=== PATIENT | female | born 1990 | race African-American/Black ===

== ENCOUNTER 2024-03-27 09:35 | Emergency (ER) | payer OTHER ==
[~2024-03-27] VITALS: Ht 152.4 cm; Wt 86.2 kg
[2024-03-27] MEDS ORDERED: TETRACAINE HCL 20 DR/ML DROPS OP ONE (10:15)
[2024-03-27] MEDS ORDERED: METHYLPREDNISOLONE SOD SUCC 40 MG VIAL IM ONE (10:15)
[2024-03-27] MEDS ORDERED: CEFTRIAXONE SODIUM 1,000 MG VIAL IM ONE (10:15)
[2024-03-27] MEDS ORDERED: KETOROLAC TROMETHAMINE 60 MG VIAL IM ONE (10:15)
[2024-03-27] MEDS ORDERED: DIPHENHYDRAMINE HCL 50 MG/ML VIAL 1ML IM ONE (10:15)
[2024-03-27 11:42] LABS: HEMATOCRIT 37.1 % (36.0-45.00); HEMOGLOBIN 12.7 g/dL (12.0-15.00); MEAN CELL VOLUME 84.3 fL (80.00-100.00); MEAN CORPUSCULAR HEMOGLOBIN 28.8 pg (27.00-32.0); MEAN CORPUSCULAR HGB CONC 34.1 g/dl (32.0-36.0); PLATELET COUNT 286 K/uL (150-450); RED BLOOD COUNT 4.41 M/uL (4.00-6.00); RED CELL DISTRIBUTION WIDTH 14.6 % (11.5-14.5)
[2024-03-27] MEDS ORDERED: MAXITROL EYE DRO5 ML OP (12:00)
== END 2024-03-27 12:03 | disposition home or self-care (01) ==
LOC: ER 09:37
PROVIDERS: General Practice
DX: H57.89 Other specified disorders of eye and adnexa (principal)
CPT/HCPCS: 36415; 96372; 99282; J0696; J1200; J1885; J3490